=== PATIENT | female | born 1970 | race Caucasian/White ===

== ENCOUNTER 2023-02-09 21:25 | Emergency (ER) | payer MEDICAID ==
[~2023-02-09] VITALS: Ht 144.8 cm; Wt 75.3 kg
[2023-02-09 22:00] VITALS: BP 122/70
--- NOTE | 2023-02-09 22:03 | NUR ---
TO LOBBY A/W BED AMBULATORY
--- NOTE | 2023-02-09 23:58 | NUR ---
PT TO BED #4
--- NOTE | 2023-02-10 00:47 | NUR ---
Patient being evaluated by physician at bedside.
[2023-02-10] MEDS ORDERED: OFLO5SOL OP (01:18)
[2023-02-10] MEDS ORDERED: CARB15SO23 OP (01:18)
--- NOTE | 2023-02-10 01:25 | NUR ---
Patient discharged with v/s stable. Written and verbal after care instructions given and explained. Patient alert, oriented and verbalized understanding of instructions. Ambulatory with steady gait. All questions addressed prior to discharge. ID band removed. Patient advised to follow up with PMD. Rx of refresh eye drops, ofloxacin given. Opportunity to ask questions provided and answered.
== END 2023-02-10 01:25 | disposition home or self-care (01) ==
LOC: MED 21:25
DX: H10.9 Unspecified conjunctivitis (principal)
CPT/HCPCS: 99283

== ENCOUNTER 2023-08-20 01:57 | Emergency (ER) | payer MEDICAID ==
[~2023-08-20] VITALS: Ht 134.6 cm; Wt 88.5 kg
[~2023-08-20 01:57] MED LIST: CARB15SO23 OP; OFLO5SOL OP
[2023-08-20 02:15] VITALS: BP 139/82; PULSE 80; RESP 17; TEMP 98.4; O2SAT 100
[2023-08-20] MEDS ORDERED: MORPHINE SULFATE 4 MG/ML SYR IM ONE (02:55)
[2023-08-20] MEDS ORDERED: KETOROLAC 30 MG/ML VIAL IM ONE (02:55)
[2023-08-20 02:57] VITALS: BP 137/54; PULSE 80; RESP 15; O2SAT 98
[2023-08-20 03:10] LABS: BASOPHILS # (AUTO) 0.1 K/uL (0.00-0.22); BASOPHILS % (AUTO) 1.1 % (0.0-2.0); EOSINOPHILS # (AUTO) 0.3 K/uL (0-0.4); EOSINOPHILS % (AUTO) 3.3 % (0.0-4.0); HEMATOCRIT 39.7 % (36-48); HEMOGLOBIN 13.5 g/dL (12.0-16.0); LYMPHOCYTES # (AUTO) 2.4 K/uL (2.5-16.5); LYMPHOCYTES % (AUTO) 30.2 % (20.5-51.1); MEAN CORPUSCULAR HEMOGLOBIN 31 pg (27-31); MEAN CORPUSCULAR HGB CONC 34 g/dL (33-37); MEAN CORPUSCULAR VOLUME 91.1 fL (80-94); MONOCYTES # (AUTO) 0.7 K/uL (0.8-1.0); MONOCYTES % (AUTO) 9.2 % (1.7-9.3); NEUTROPHILS # (AUTO) 4.5 K/uL (1.8-7.7); NEUTROPHILS % (AUTO) 56.2 % (42.2-75.2); PLATELET COUNT (AUTO) 332 K/uL (140-450); RED BLOOD CELL COUNT(AUTO) 4.36 MIL/uL (4.20-5.40); RED CELL DISTRIBUTION WIDTH 12.9 % (11.6-13.7)
[2023-08-20 03:55] LABS: ALBUMIN 3.6 g/dL (3.4-5.0); ANION GAP 9.9 (8-16); CALCIUM 9.2 mg/dL (8.5-10.1); CARBON DIOXIDE 29.8 mmol/L (21-32); CREATININE 0.7 mg/dL (0.6-1.3); POTASSIUM 3.7 mmol/L (3.5-5.1); TOTAL BILIRUBIN 0.3 mg/dL (0.0-1.0); TOTAL PROTEIN, SERUM 7.2 g/dL (6.4-8.2)
[2023-08-20] MEDS ORDERED: ONDA-188 PO (04:20)
[2023-08-20] MEDS ORDERED: NITR100C7 PO (04:20)
[2023-08-20] MEDS ORDERED: FAMO-90 PO (04:20)
[2023-08-20] MEDS ORDERED: ACET-10509 PO (04:20)
[2023-08-20] MEDS ORDERED: DOCU-299 PO (04:21)
== END 2023-08-20 04:59 | disposition home or self-care (01) ==
LOC: MED 01:57
DX: N39.0 Urinary tract infection, site not specified (principal); K43.9 Ventral hernia without obstruction or gangrene; Z79.899 Other long term (current) drug therapy
CPT/HCPCS: 36415; 74176; 80053; 81025; 83690; 85025; 96372; 99285; J1885; J2270

== ENCOUNTER 2023-10-14 09:01 | Inpatient (IN) | payer MEDICAID ==
[~2023-10-14] VITALS: Ht 162.6 cm; Wt 113.4 kg
[~2023-10-14 09:01] MED LIST changes: +ACET-10509 PO; +DOCU-299 PO; +FAMO-90 PO; +NITR100C7 PO; +ONDA-188 PO
[2023-10-14 09:03] VITALS: BP 132/86; PULSE 76; RESP 16; TEMP 98.9; O2SAT 99
[2023-10-14] MEDS ORDERED: ONDANSETRON 4 MG ODT ONE (09:23)
[2023-10-14 09:53] LABS: BILIRUBIN,URINE NEGATIVE (NEGATIVE); BLOOD, URINE NEGATIVE (NEGATIVE); COLOR,URINE YELLOW (YELLOW); LEUKOCYTE ESTERASE ,URINE NEGATIVE (NEGATIVE); NITRITE, URINE NEGATIVE (NEGATIVE); PH,URINE 8.5 (5.0-9.0); PROTEIN,URINE TRACE (NEGATIVE); UGLUCOSE NEGATIVE (NEGATIVE); UROBILINOGEN,URINE 0.2 EU/dL (0.2 - 1)
[2023-10-14 09:54] LABS: APPEARANCE,URINE SLIGHTLY CLOUDY (CLEAR)
[2023-10-14] MEDS: ONDANSETRON 4 MG ODT PO ONE (09:54)
[2023-10-14] MEDS: NACL 0.9% 1,000 ML IV SCH ×2 (09:55→13:54)
[2023-10-14] MEDS: KETOROLAC 30 MG/ML VIAL IVP ONE (09:55)
[2023-10-14 09:58] LABS: BASOPHILS # (AUTO) 0.1 K/uL (0.00-0.22); BASOPHILS % (AUTO) 0.6 % (0.0-2.0); EOSINOPHILS # (AUTO) 0.1 K/uL (0-0.4); EOSINOPHILS % (AUTO) 0.9 % (0.0-4.0); HEMATOCRIT 42.8 % (36-48); HEMOGLOBIN 14.6 g/dL (12.0-16.0); LYMPHOCYTES # (AUTO) 1.6 K/uL (2.5-16.5); LYMPHOCYTES % (AUTO) 12.6 % (20.5-51.1); MEAN CORPUSCULAR HEMOGLOBIN 30 pg (27-31); MEAN CORPUSCULAR HGB CONC 34 g/dL (33-37); MEAN CORPUSCULAR VOLUME 89.6 fL (80-94); MONOCYTES # (AUTO) 0.7 K/uL (0.8-1.0); MONOCYTES % (AUTO) 5.3 % (1.7-9.3); NEUTROPHILS # (AUTO) 10.4 K/uL (1.8-7.7); NEUTROPHILS % (AUTO) 80.6 % (42.2-75.2); PLATELET COUNT (AUTO) 408 K/uL (140-450); RED BLOOD CELL COUNT(AUTO) 4.78 MIL/uL (4.20-5.40); RED CELL DISTRIBUTION WIDTH 13.4 % (11.6-13.7); WHITE BLOOD COUNT (AUTO) 12.9 K/uL (4.8-10.8)
[2023-10-14 10:04] LABS: ALBUMIN 3.9 g/dL (3.4-5.0); BILIRUBIN,DIRECT 0.2 mg/dL (0.0-0.3); TOTAL BILIRUBIN 0.7 mg/dL (0.0-1.0); TOTAL PROTEIN, SERUM 9.1 g/dL (6.4-8.2)
[2023-10-14 10:05] LABS: RBC,URINE 0-5 /HPF (0-5); WBC,URINE 0-5 /HPF (0-5)
[2023-10-14 10:06] LABS: BACTERIA,URINE 0-2 /HPF (None Seen); MUCUS,URINE 1+ /LPF (None Seen); SQUAMOUS EPITHELIAL CELL,UR 4-10 (MOD) /LPF (0-3 (FEW)); URINE AMORPHOUS PHOSPHATES 2+ /HPF (None Seen)
[2023-10-14 10:11] LABS: ANION GAP 11.9 (8-16); CALCIUM 9.8 mg/dL (8.5-10.1); CARBON DIOXIDE 34.9 mmol/L (21-32); CREATININE 0.7 mg/dL (0.6-1.3); POTASSIUM 3.8 mmol/L (3.5-5.1)
[2023-10-14] MEDS ORDERED: ZOLPIDEM 5 MG TAB PO PRN (12:40)
[2023-10-14] MEDS ORDERED: ONDANSETRON 4 MG/2 ML VIAL IVP PRN (12:40)
[2023-10-14 13:15] VITALS: BP 122/70; PULSE 82; PULSE 85; RESP 18; TEMP 98.3; O2SAT 98
[2023-10-14] MEDS ORDERED: KETOROLAC 30 MG/ML VIAL IVP PRN (14:45)
== END 2023-10-14 15:45 | disposition left against medical advice (07) | DRG 254 ==
LOC: MED 09:01 → MTU 12:41
PROVIDERS: ADMIT Student in an Organized Health Care Education/Training Program; ATTEND Student in an Organized Health Care Education/Training Program
DX: K43.0 Incisional hernia with obstruction, without gangrene (principal); Z53.29 Procedure and treatment not carried out because of patient's decision for other reasons; Z88.5 Allergy status to narcotic agent
CPT/HCPCS: 36415; 80048; 80076; 81001; 82150; 83036; 83690; 85025; 96361; 96374; 99291; J1885; Q0162